=== PATIENT | female | born 1990 | race Caucasian/White ===

== ENCOUNTER 2018-02-17 20:03 | Inpatient (IN) | payer OTHER ==
[2018-02-17 21:49] LABS: ADD MAN DIFF? NO
[2018-02-17 21:51] LABS: BASOPHILS % 0.3 % (0.0-2.0); EOSINOPHILS % 0.5 % (0.0-7.0); HEMATOCRIT 32.6 % (37.0-47.0); HEMOGLOBIN 11.1 g/dl (12.0-16.0); LYMPHOCYTES # 2.3 10^3/ul (0.8-2.9); LYMPHOCYTES % 29.8 % (15.0-51.0); MEAN CORPUSCULAR HEMOGLOBIN 29.9 pg (29.0-33.0); MEAN CORPUSCULAR VOLUME 87.9 fl (82.0-101.0); MEAN PLATELET VOLUME 9.9 fl (7.4-10.4); MONOCYTE # 0.7 10^3/ul (0.3-0.9); MONOCYTES % 8.7 % (0.0-11.0); NEUTROPHIL # 4.7 10^3/ul (1.6-7.5); NEUTROPHILS % 60.2 % (39.0-77.0); PLATELET COUNT 201 10^3/UL (140-415); RED BLOOD COUNT 3.71 10^6/ul (4.20-5.40); RED CELL DISTRIBUTION WIDTH 13.2 % (11.5-14.5)
[2018-02-17 21:51] LABS: WHITE BLOOD COUNT 7.9 10^3/ul (4.8-10.8)
[2018-02-17 22:12] LABS: INR 0.93; PARTIAL THROMBOPLASTIN TIME 26.3 Sec (25.0-35.0); PROTIME 12.5 Sec (11.9-14.9)
[2018-02-17 22:18] LABS: ALANINE AMINOTRANSFERASE 18 IU/L (13-69); ALBUMIN 3.6 g/dl (3.3-4.9); ALBUMIN/GLOBULIN RATIO 1.16; ALKALINE PHOSPHATASE 172 IU/L (42-121); ANION GAP 15 (8-16); ASPARTATE AMINO TRANSFERASE 18 IU/L (15-46); BLOOD UREA NITROGEN 9 mg/dl (7-20); CALCIUM 8.6 mg/dl (8.4-10.2); CARBON DIOXIDE 22 mmol/L (21-31); CHLORIDE 110 mmol/L (97-110); CREATININE 0.51 mg/dl (0.44-1.00); GLUCOSE 90 mg/dl (70-220); POTASSIUM 3.6 mmol/L (3.5-5.1); SODIUM 143 mmol/L (135-144); TOTAL PROTEIN 6.7 g/dl (6.1-8.1)
[2018-02-17 23:53] LABS: ADD UMIC YES; UR AMORPHOUS CRYSTAL FEW /HPF (NONE SEEN); UR ASCORBIC ACID NEGATIVE (NEGATIVE); UR BACTERIA FEW /HPF (NONE SEEN); UR BILIRUBIN (Dip) NEGATIVE (NEGATIVE); UR BLOOD (Dip) NEGATIVE (NEGATIVE); UR CLARITY CLOUDY (CLEAR); UR COLOR YELLOW (YELLOW); UR GLUCOSE (Dip) NEGATIVE (NEGATIVE); UR KETONES (Dip) NEGATIVE (NEGATIVE); UR LEUKOCYTE ESTERASE (Dip) TRACE Leu/ul (NEGATIVE); UR NITRITE (Dip) NEGATIVE (NEGATIVE); UR RBC 1 /HPF (0-5); UR SPECIFIC GRAVITY (Dip) 1.018 (1.003-1.030); UR SQUAMOUS EPITHELIAL CELL FEW /HPF (FEW); UR TOTAL PROTEIN (Dip) NEGATIVE (NEGATIVE); UR UROBILINOGEN (Dip) NEGATIVE (NEGATIVE); UR WBC 14 /HPF (0-5)
[2018-02-18] MEDS ORDERED: IBUPROFEN 600 MG TAB PO (01:30)
[2018-02-18] MEDS ORDERED: LIDOCAINE 1% (MPF) 30 ML INJ INJ (01:30)
[2018-02-18] MEDS ORDERED: MISOPROSTOL 200 MCG TAB PR (01:30)
[2018-02-18] MEDS ORDERED: BUTORPHANOL 2 MG INJ IV ×2 (01:30)
[2018-02-18] MEDS ORDERED: CARBOPROST 250 MCG INJ IM (01:30)
[2018-02-18] MEDS ORDERED: OXYTOCIN 30 UNITS/LR 500 ML IV (01:30)
[2018-02-18] MEDS ORDERED: METHYLERGONOVINE 0.2 MG INJ IM (01:30)
[2018-02-18] MEDS ORDERED: OXYCODONE/ASPIRIN (4.88/325) TAB PO (01:30)
[2018-02-18] MEDS: LACTATED RINGER'S 1,000 ML IV ×6 (02:04→21:25)
[2018-02-18 02:22] LABS: ADD MAN DIFF? NO; BASOPHILS % 0.3 % (0.0-2.0); EOSINOPHILS # 0.1 10^3/ul (0.0-0.5); EOSINOPHILS % 0.6 % (0.0-7.0); HEMATOCRIT 32.1 % (37.0-47.0); HEMOGLOBIN 10.9 g/dl (12.0-16.0); LYMPHOCYTES # 2.7 10^3/ul (0.8-2.9); LYMPHOCYTES % 33.5 % (15.0-51.0); MEAN CORPUSCULAR HEMOGLOBIN 29.6 pg (29.0-33.0); MEAN CORPUSCULAR VOLUME 87.2 fl (82.0-101.0); MONOCYTE # 0.6 10^3/ul (0.3-0.9); MONOCYTES % 7.3 % (0.0-11.0); NEUTROPHIL # 4.6 10^3/ul (1.6-7.5); NEUTROPHILS % 57.8 % (39.0-77.0); PLATELET COUNT 189 10^3/UL (140-415); RED BLOOD COUNT 3.68 10^6/ul (4.20-5.40); RED CELL DISTRIBUTION WIDTH 13.5 % (11.5-14.5)
[2018-02-18 02:43] LABS: INR 0.94; PROTIME 12.7 Sec (11.9-14.9)
[2018-02-18 02:44] LABS: PARTIAL THROMBOPLASTIN TIME 27.1 Sec (25.0-35.0)
[2018-02-18 03:15] LABS: HEPATITIS B SURFACE ANTIGEN NEGATIVE (NEGATIVE)
[2018-02-18] MEDS: OXYTOCIN 30 UNITS/LR 500 ML IV (14:06)
[2018-02-18 15:08] LABS: RAPID PLASMA REAGIN NONREACTIVE (NR)
[2018-02-18] MEDS ORDERED: FENTAnyl 2MCG/ML-ROPIV 0.2% 100 ML (23:17)
[2018-02-18] MEDS: FENTAnyl 2MCG/ML-ROPIV 0.2% 100 ML BAG EPI (23:59)
[2018-02-19] MEDS ORDERED: KETOROLAC 30 MG INJ IV
[2018-02-19] MEDS: LACTATED RINGER'S 1,000 ML IV (05:27)
[2018-02-19] MEDS ORDERED: CEFAZOLIN 2 GM/50 ML (PMX) 0 ML IVPB (06:01)
[2018-02-19] MEDS ORDERED: OXYTOCIN 30 UNITS/LR 500 ML BAG IV (07:00)
[2018-02-19] MEDS: CEFAZOLIN 2 GM/50 ML (PMX) 50 ML IVPB (09:30)
[2018-02-19] MEDS ORDERED: LIDOCAINE 1.5%/EPI MPF (SDV) 30 ML VIAL (09:43)
[2018-02-19] MEDS ORDERED: FENTAnyl 50 MCG/ML VIAL (09:43)
[2018-02-19] MEDS ORDERED: NA BICARBONATE 8.4% 50 ML SYG (09:43)
[2018-02-19] MEDS ORDERED: DEXAMETHASONE 4 MG/ML 1 ML INJ (10:02)
[2018-02-19] MEDS ORDERED: MIDAZOLAM 1 MG/ML 2 ML INJ (10:26)
[2018-02-19] MEDS ORDERED: morphine SULFATE/PF (10 MG/10 ML) INJ (10:49)
[2018-02-19] MEDS ORDERED: NALOXONE (0.4 MG/ML) INJ IV ×2 (11:00)
[2018-02-19] MEDS ORDERED: ONDANSETRON 4 MG INJ IV ×2 (11:00)
[2018-02-19] MEDS ORDERED: HYDROmorphONE 0.5 MG/0.5 ML SYG IV ×4 (11:00)
[2018-02-19] MEDS ORDERED: DIPHENHYDRAMINE 50 MG INJ IV ×2 (11:00)
[2018-02-19] MEDS: OXYTOCIN 30 UNITS/LR 500 ML IV ×4 (11:49→22:44)
[2018-02-19] MEDS: CEFAZOLIN 1 GM/50 ML (PMX) 50 ML IVPB (17:24)
[2018-02-19] MEDS ORDERED: OXYTOCIN 30 UNITS/LR 500 ML IV (17:30)
[2018-02-19] MEDS ORDERED: OXYCODONE/ACETAMINOPHEN (5/325) TAB PO (17:30)
[2018-02-19] MEDS ORDERED: HYDROCODONE/APAP (5/325) TAB PO ×2 (17:30)
[2018-02-19] MEDS ORDERED: METHYLERGONOVINE 0.2 MG INJ IM (17:30)
[2018-02-19] MEDS ORDERED: MISOPROSTOL 200 MCG TAB PR (17:30)
[2018-02-19] MEDS ORDERED: CARBOPROST 250 MCG INJ IM (17:30)
[2018-02-19] MEDS: LANOLIN 7 GM TUBE TOP (17:31)
[2018-02-19] MEDS: IBUPROFEN 600 MG TAB PO (18:00)
[2018-02-19] MEDS: SENNA/DOCUSATE NA (8.6MG/50MG) TAB PO (21:00)
[2018-02-20] MEDS: OXYTOCIN 30 UNITS/LR 500 ML IV ×4 (01:15→13:15)
[2018-02-20] MEDS: IBUPROFEN 600 MG TAB PO ×4 (06:00→18:00)
[2018-02-20 06:55] LABS: ADD MAN DIFF? NO
[2018-02-20 07:01] LABS: BASOPHILS % 0.2 % (0.0-2.0); EOSINOPHILS % 0.1 % (0.0-7.0); HEMATOCRIT 24.7 % (37.0-47.0); HEMOGLOBIN 8.5 g/dl (12.0-16.0); LYMPHOCYTES # 2.2 10^3/ul (0.8-2.9); LYMPHOCYTES % 25.5 % (15.0-51.0); MEAN CORPUSCULAR HEMOGLOBIN 29.9 pg (29.0-33.0); MEAN CORPUSCULAR HGB CONC 34.4 g/dl (32.0-37.0); MEAN PLATELET VOLUME 10.3 fl (7.4-10.4); MONOCYTE # 0.6 10^3/ul (0.3-0.9); MONOCYTES % 7.1 % (0.0-11.0); NEUTROPHIL # 5.8 10^3/ul (1.6-7.5); NEUTROPHILS % 66.8 % (39.0-77.0); PLATELET COUNT 183 10^3/UL (140-415); RED BLOOD COUNT 2.84 10^6/ul (4.20-5.40); RED CELL DISTRIBUTION WIDTH 13.2 % (11.5-14.5)
[2018-02-20 07:01] LABS: WHITE BLOOD COUNT 8.7 10^3/ul (4.8-10.8)
[2018-02-20] MEDS: KETOROLAC 30 MG INJ IV (09:00)
[2018-02-20] MEDS: SENNA/DOCUSATE NA (8.6MG/50MG) TAB PO ×2 (09:00→21:28)
[2018-02-20] MEDS: OXYCODONE/ACETAMINOPHEN (5/325) TAB PO (21:28)
[2018-02-21] MEDS: IBUPROFEN 600 MG TAB PO ×5 (00:01→23:42)
[2018-02-21] MEDS: SENNA/DOCUSATE NA (8.6MG/50MG) TAB PO ×2 (09:01→21:54)
[2018-02-21] MEDS: OXYCODONE/ACETAMINOPHEN (5/325) TAB PO (09:08)
[2018-02-22] MEDS: IBUPROFEN 600 MG TAB PO ×2 (06:09→11:49)
[2018-02-22] MEDS: DIPHTH/TET/ACEL PERTUSS (ADULT) 0.5 ML VIAL IM* (09:00)
[2018-02-22] MEDS: SENNA/DOCUSATE NA (8.6MG/50MG) TAB PO (09:39)
== END 2018-02-22 13:45 | disposition home or self-care (01) | DRG 766 ==
LOC: OBT 20:03 → L-D 20:06 → PP1 02-19 14:31
PROC: 10D00Z1 Extraction of Products of Conception, Low, Open Approach (ICD-10-PCS; principal; 2018-02-19 09:00)
PROC: 0UL70ZZ Occlusion of Bilateral Fallopian Tubes, Open Approach (ICD-10-PCS; 2018-02-19 09:00)
PROC: 3E033VJ Introduction of Other Hormone into Peripheral Vein, Percutaneous Approach (ICD-10-PCS; 2018-02-19 09:00)
DX: O76 Abnormality in fetal heart rate and rhythm complicating labor and delivery (principal); O62.0 Primary inadequate contractions; Z30.2 Encounter for sterilization; Z3A.38 38 weeks gestation of pregnancy; Z37.0 Single live birth
CPT/HCPCS: 36415; 62319; 76815; 76818; 80053; 81001; 84560; 85025; 85610; 85730; 86592; 86850; 86900; 86901; 87340; 88305; 99464

== ENCOUNTER 2018-02-26 18:02 | Inpatient (IN) | payer OTHER ==
[2018-02-26] MEDS: SOD CHLORIDE 0.9% 1,830 ML IV (20:10)
[2018-02-26 20:16] LABS: ADD MAN DIFF? NO
[2018-02-26 20:18] LABS: BASOPHILS % 0.4 % (0.0-2.0); EOSINOPHILS % 0.2 % (0.0-7.0); HEMATOCRIT 29.4 % (37.0-47.0); HEMOGLOBIN 9.8 g/dl (12.0-16.0); LYMPHOCYTES # 1.9 10^3/ul (0.8-2.9); LYMPHOCYTES % 22.6 % (15.0-51.0); MEAN CORPUSCULAR HEMOGLOBIN 29.2 pg (29.0-33.0); MEAN CORPUSCULAR HGB CONC 33.3 g/dl (32.0-37.0); MEAN CORPUSCULAR VOLUME 87.5 fl (82.0-101.0); MEAN PLATELET VOLUME 8.7 fl (7.4-10.4); MONOCYTE # 0.7 10^3/ul (0.3-0.9); MONOCYTES % 8.7 % (0.0-11.0); NEUTROPHIL # 5.7 10^3/ul (1.6-7.5); NEUTROPHILS % 67.4 % (39.0-77.0); PLATELET COUNT 332 10^3/UL (140-415); RED BLOOD COUNT 3.36 10^6/ul (4.20-5.40); RED CELL DISTRIBUTION WIDTH 13.2 % (11.5-14.5)
[2018-02-26 20:18] LABS: WHITE BLOOD COUNT 8.5 10^3/ul (4.8-10.8)
[2018-02-26 20:35] LABS: LACTIC ACID 0.9 mmol/L (0.5-2.0)
[2018-02-26 20:35] LABS: ADD UMIC YES; UR ASCORBIC ACID NEGATIVE (NEGATIVE); UR BILIRUBIN (Dip) NEGATIVE (NEGATIVE); UR BLOOD (Dip) 3+ mg/dL (NEGATIVE); UR CLARITY SLIGHTLY CLOUDY (CLEAR); UR COLOR YELLOW (YELLOW); UR GLUCOSE (Dip) NEGATIVE (NEGATIVE); UR KETONES (Dip) NEGATIVE (NEGATIVE); UR LEUKOCYTE ESTERASE (Dip) 3+ Leu/ul (NEGATIVE); UR MUCUS FEW /HPF (NONE SEEN); UR NITRITE (Dip) NEGATIVE (NEGATIVE); UR RBC 83 /HPF (0-5); UR SPECIFIC GRAVITY (Dip) 1.026 (1.003-1.030); UR TOTAL PROTEIN (Dip) 1+ mg/dl (NEGATIVE); UR UROBILINOGEN (Dip) 2+ mg/dL (NEGATIVE); UR WBC > 182 /HPF (0-5)
[2018-02-26 20:39] LABS: ALANINE AMINOTRANSFERASE 30 IU/L (13-69); ALBUMIN/GLOBULIN RATIO 1.05; ALKALINE PHOSPHATASE 138 IU/L (42-121); ANION GAP 18 (8-16); ASPARTATE AMINO TRANSFERASE 27 IU/L (15-46); BILIRUBIN,INDIRECT 0.1 mg/dl (0-1.1); BILIRUBIN,TOTAL 0.1 mg/dl (0.2-1.3); BLOOD UREA NITROGEN 18 mg/dl (7-20); CARBON DIOXIDE 22 mmol/L (21-31); CHLORIDE 107 mmol/L (97-110); CREATININE 0.68 mg/dl (0.44-1.00); GLUCOSE 111 mg/dl (70-220); LIPASE 56 U/L (23-300); POTASSIUM 3.5 mmol/L (3.5-5.1); SODIUM 143 mmol/L (135-144); TOTAL PROTEIN 7.8 g/dl (6.1-8.1)
[2018-02-26] MEDS: morphine 4 MG/ML VIAL IV (20:40)
[2018-02-26 20:45] LABS: PROTIME 13.3 Sec (11.9-14.9)
[2018-02-26 20:46] LABS: PARTIAL THROMBOPLASTIN TIME 36.3 Sec (25.0-35.0)
[2018-02-26] MEDS: IOHEXOL 300MG/ML 150 ML BTL (21:35)
[2018-02-26] MEDS: SOD CHLORIDE 0.9% 100 ML (21:35)
[2018-02-27] MEDS: CEFAZOLIN 1 GM/50 ML (PMX) 50 ML IVPB (00:14)
[2018-02-27] MEDS ORDERED: ONDANSETRON 4 MG INJ IV ×2 (02:00→07:00)
[2018-02-27] MEDS: morphine 4 MG/ML VIAL IV (02:09)
[2018-02-27] MEDS ORDERED: morphine 2 MG INJ IV (07:00)
[2018-02-27] MEDS ORDERED: NACL 0.9% 3 ML SYG IV (07:00)
[2018-02-27] MEDS ORDERED: VANCOMYCIN IV PER PHARMACY XX (07:00)
[2018-02-27] MEDS ORDERED: ALBUTEROL/IPRATROPIUM (NEB) 3 ML AMP HHN (07:00)
[2018-02-27] MEDS: ACETAMINOPHEN 325 MG TAB PO ×3 (07:15→21:43)
[2018-02-27 07:38] LABS: HEMATOCRIT 27.4 % (37.0-47.0); HEMOGLOBIN 9.1 g/dl (12.0-16.0); MEAN CORPUSCULAR HEMOGLOBIN 29.2 pg (29.0-33.0); MEAN CORPUSCULAR HGB CONC 33.2 g/dl (32.0-37.0); MEAN CORPUSCULAR VOLUME 87.8 fl (82.0-101.0); MEAN PLATELET VOLUME 8.9 fl (7.4-10.4); PLATELET COUNT 308 10^3/UL (140-415); RED BLOOD COUNT 3.12 10^6/ul (4.20-5.40); RED CELL DISTRIBUTION WIDTH 13.2 % (11.5-14.5)
[2018-02-27 07:38] LABS: WHITE BLOOD COUNT 7.7 10^3/ul (4.8-10.8)
[2018-02-27 07:43] LABS: ADD MAN DIFF? YES; POSITIVE DIFF @See below
[2018-02-27 08:10] LABS: ALANINE AMINOTRANSFERASE 33 IU/L (13-69); ALBUMIN/GLOBULIN RATIO 0.96; ALKALINE PHOSPHATASE 115 IU/L (42-121); ANION GAP 15 (8-16); ASPARTATE AMINO TRANSFERASE 19 IU/L (15-46); BLOOD UREA NITROGEN 13 mg/dl (7-20); CALCIUM 8.4 mg/dl (8.4-10.2); CARBON DIOXIDE 21 mmol/L (21-31); CHLORIDE 110 mmol/L (97-110); GLUCOSE 90 mg/dl (70-220); POTASSIUM 3.7 mmol/L (3.5-5.1); SODIUM 142 mmol/L (135-144); TOTAL PROTEIN 6.1 g/dl (6.1-8.1)
[2018-02-27 08:11] LABS: ANISOCYTOSIS 2+ (0-0); BAND NEUTROPHILS #M 0.8 10^3/ul (0.0-0.6); BAND NEUTROPHILS % (M) 11 % (0-4); EOSINOPHILS % (M) 1 % (0-7); LYMPHOCYTES % (M) 14 % (15-51); METAMYELOCYTES #M 0.1 10^3/ul (0.0-0.0); METAMYELOCYTES %M 2 % (0-0); MICROCYTOSIS 2+ (0-0); MONOCYTE #M 0.4 10^3/ul (0.3-0.9); MONOCYTES % (M) 6 % (0-11); PLATELET ESTIMATE NORMAL; POIKILOCYTOSIS 1+ (0-0); POLYCHROMASIA 2+ (0-0); REACTIVE LYMPHOCYTES #M 0.6 10^3/ul (0.0-0.0); REACTIVE LYMPHOCYTES% (M) 9 % (0-0); SEG NEUT #M 4.5 10^3/ul (1.6-7.5); SEGMENTED NEUTROPHILS (M) % 57 % (39-77); SMUDGE%M 2 % (0-0)
[2018-02-27 08:12] LABS: IRON 15 ug/dl (35-150)
[2018-02-27 08:21] LABS: % IRON SATURATION 5 % SAT (22-52); TOTAL IRON BINDING CAPACITY 310 ug/dl (241-421)
[2018-02-27 08:46] LABS: FERRITIN 68.7 ng/ml (6.2-137.0)
[2018-02-27] MEDS: VANCOMYCIN 1.25 GM in SOD CHLORIDE 0.9% 250 ML IVPB (09:11)
[2018-02-27] MEDS: CEFEPIME 1GM/50 ML (PMX) 50 ML IVPB ×2 (12:32→22:17)
[2018-02-27] MEDS: VANCOMYCIN 1 GM 250 ML IVPB (20:26)
[2018-02-28 06:17] LABS: ADD MAN DIFF? NO
[2018-02-28 06:19] LABS: BASOPHILS % 0.2 % (0.0-2.0); EOSINOPHILS # 0.1 10^3/ul (0.0-0.5); EOSINOPHILS % 0.7 % (0.0-7.0); HEMATOCRIT 26.6 % (37.0-47.0); HEMOGLOBIN 8.8 g/dl (12.0-16.0); LYMPHOCYTES # 1.7 10^3/ul (0.8-2.9); LYMPHOCYTES % 18.7 % (15.0-51.0); MEAN CORPUSCULAR HEMOGLOBIN 28.9 pg (29.0-33.0); MEAN CORPUSCULAR HGB CONC 33.1 g/dl (32.0-37.0); MEAN CORPUSCULAR VOLUME 87.5 fl (82.0-101.0); MEAN PLATELET VOLUME 8.9 fl (7.4-10.4); MONOCYTE # 0.7 10^3/ul (0.3-0.9); MONOCYTES % 7.8 % (0.0-11.0); NEUTROPHIL # 6.5 10^3/ul (1.6-7.5); NEUTROPHILS % 72.2 % (39.0-77.0); PLATELET COUNT 325 10^3/UL (140-415); RED BLOOD COUNT 3.04 10^6/ul (4.20-5.40); RED CELL DISTRIBUTION WIDTH 13.4 % (11.5-14.5)
[2018-02-28 06:59] LABS: ALANINE AMINOTRANSFERASE 33 IU/L (13-69); ALBUMIN/GLOBULIN RATIO 0.93; ALKALINE PHOSPHATASE 100 IU/L (42-121); ANION GAP 14 (8-16); ASPARTATE AMINO TRANSFERASE 13 IU/L (15-46); BLOOD UREA NITROGEN 13 mg/dl (7-20); CALCIUM 8.5 mg/dl (8.4-10.2); CARBON DIOXIDE 22 mmol/L (21-31); CHLORIDE 108 mmol/L (97-110); CREATININE 0.57 mg/dl (0.44-1.00); GLUCOSE 97 mg/dl (70-220); MAGNESIUM 1.8 mg/dl (1.7-2.5); PHOSPHORUS 4.1 mg/dl (2.5-4.9); POTASSIUM 3.3 mmol/L (3.5-5.1); SODIUM 141 mmol/L (135-144); TOTAL PROTEIN 6.2 g/dl (6.1-8.1)
[2018-02-28] MEDS: VANCOMYCIN 1 GM 250 ML IVPB ×2 (08:31→20:09)
[2018-02-28] MEDS: ACETAMINOPHEN 325 MG TAB PO ×2 (08:36→20:08)
[2018-02-28] MEDS: CEFEPIME 1GM/50 ML (PMX) 50 ML IVPB ×2 (10:33→22:34)
[2018-02-28] MEDS: POTASSIUM CHLORIDE (SR) 20 MEQ TAB PO (14:19)
[2018-02-28 19:16] LABS: VANCOMYCIN,TROUGH 5.9 ug/ml (10.0-20.0)
[2018-03-01] MEDS ORDERED: AMPICILLIN 500 MG in SOD CHLORIDE 0.9% 50 ML IVPB
[2018-03-01] MEDS: VANCOMYCIN 1 GM 250 ML IVPB (04:22)
[2018-03-01] MEDS: ACETAMINOPHEN 325 MG TAB PO ×2 (04:25→18:50)
[2018-03-01 05:37] LABS: ADD MAN DIFF? NO
[2018-03-01 05:44] LABS: BASOPHILS % 0.3 % (0.0-2.0); EOSINOPHILS % 0.4 % (0.0-7.0); HEMATOCRIT 26.2 % (37.0-47.0); HEMOGLOBIN 8.6 g/dl (12.0-16.0); LYMPHOCYTES # 1.7 10^3/ul (0.8-2.9); LYMPHOCYTES % 17.2 % (15.0-51.0); MEAN CORPUSCULAR HEMOGLOBIN 28.5 pg (29.0-33.0); MEAN CORPUSCULAR HGB CONC 32.8 g/dl (32.0-37.0); MEAN CORPUSCULAR VOLUME 86.8 fl (82.0-101.0); MEAN PLATELET VOLUME 8.9 fl (7.4-10.4); MONOCYTE # 0.6 10^3/ul (0.3-0.9); MONOCYTES % 5.5 % (0.0-11.0); NEUTROPHIL # 7.7 10^3/ul (1.6-7.5); NEUTROPHILS % 75.9 % (39.0-77.0); PLATELET COUNT 335 10^3/UL (140-415); RED BLOOD COUNT 3.02 10^6/ul (4.20-5.40); RED CELL DISTRIBUTION WIDTH 13.4 % (11.5-14.5)
[2018-03-01 05:44] LABS: WHITE BLOOD COUNT 10.1 10^3/ul (4.8-10.8)
[2018-03-01 06:41] LABS: ANION GAP 13 (8-16); BLOOD UREA NITROGEN 10 mg/dl (7-20); CALCIUM 8.3 mg/dl (8.4-10.2); CARBON DIOXIDE 24 mmol/L (21-31); CHLORIDE 109 mmol/L (97-110); CREATININE 0.58 mg/dl (0.44-1.00); GLUCOSE 97 mg/dl (70-220); POTASSIUM 3.7 mmol/L (3.5-5.1); SODIUM 142 mmol/L (135-144)
[2018-03-01] MEDS: CEFEPIME 1GM/50 ML (PMX) 50 ML IVPB ×2 (08:16→20:38)
[2018-03-01] MEDS: SOD CHLORIDE 0.9% 500 ML IV (09:03)
[2018-03-01] MEDS: SOD CHLORIDE 0.9% 1,000 ML IV ×3 (10:12→18:51)
[2018-03-01] MEDS: IBUPROFEN 400 MG TAB PO ×2 (11:41→18:03)
[2018-03-02] MEDS: IBUPROFEN 400 MG TAB PO ×2 (00:12→05:52)
[2018-03-02] MEDS: SOD CHLORIDE 0.9% 1,000 ML IV ×2 (00:30→05:53)
[2018-03-02 06:01] LABS: ADD MAN DIFF? NO
[2018-03-02 06:12] LABS: BASOPHILS % 0.2 % (0.0-2.0); EOSINOPHILS # 0.1 10^3/ul (0.0-0.5); EOSINOPHILS % 0.6 % (0.0-7.0); HEMATOCRIT 24.6 % (37.0-47.0); HEMOGLOBIN 8.1 g/dl (12.0-16.0); LYMPHOCYTES # 1.6 10^3/ul (0.8-2.9); LYMPHOCYTES % 16.4 % (15.0-51.0); MEAN CORPUSCULAR HGB CONC 32.9 g/dl (32.0-37.0); MEAN CORPUSCULAR VOLUME 88.2 fl (82.0-101.0); MONOCYTE # 0.4 10^3/ul (0.3-0.9); MONOCYTES % 4.1 % (0.0-11.0); NEUTROPHIL # 7.4 10^3/ul (1.6-7.5); NEUTROPHILS % 78.1 % (39.0-77.0); PLATELET COUNT 321 10^3/UL (140-415); RED BLOOD COUNT 2.79 10^6/ul (4.20-5.40); RED CELL DISTRIBUTION WIDTH 13.2 % (11.5-14.5)
[2018-03-02 06:12] LABS: WHITE BLOOD COUNT 9.5 10^3/ul (4.8-10.8)
[2018-03-02 06:43] LABS: ANION GAP 15 (8-16); BLOOD UREA NITROGEN 7 mg/dl (7-20); CALCIUM 8.2 mg/dl (8.4-10.2); CARBON DIOXIDE 20 mmol/L (21-31); CHLORIDE 113 mmol/L (97-110); CREATININE 0.52 mg/dl (0.44-1.00); GLUCOSE 91 mg/dl (70-220); POTASSIUM 3.7 mmol/L (3.5-5.1); SODIUM 144 mmol/L (135-144)
[2018-03-02] MEDS: CEFEPIME 1GM/50 ML (PMX) 50 ML IVPB (08:46)
== END 2018-03-02 11:00 | disposition home or self-care (01) | DRG 776 ==
LOC: FTE 18:02 → MS2 02-27 02:01
DX: O86.21 Infection of kidney following delivery (principal); O86.12 Endometritis following delivery; N20.0 Calculus of kidney
CPT/HCPCS: 36415; 74177; 76856; 80048; 80053; 80202; 81001; 82728; 83540; 83605; 83690; 83735; 84100; 85025; 85610; 85730; 87040; 87086; 96374; 96375; 96376; 99285-25